=== PATIENT | male | born 1990 | race Caucasian/White ===

== ENCOUNTER 2016-08-30 15:21 | Emergency (ER) | payer SELFPAY ==
[~2016-08-30] VITALS: Ht 160 cm; Wt 50.0 kg
[2016-08-30 15:49] VITALS: BP 105/70
[2016-08-30] MEDS ORDERED: BACITRACIN ZINC OINT UDPKT TOP ONE (16:15)
[2016-08-30] MEDS ORDERED: TETANUS, DIPHTHERIA, PERTUSSIS VAC/PF 0.5ML (>7YR OLD) IM ONE (16:15)
== END 2016-08-30 18:32 | disposition home or self-care (01) ==
LOC: ER 15:21
DX: S01.01XA Laceration without foreign body of scalp, initial encounter (principal); S00.03XA Contusion of scalp, initial encounter; W19.XXXA Unspecified fall, initial encounter; Y93.89 Activity, other specified; Y92.89 Other specified places as the place of occurrence of the external cause; Y99.8 Other external cause status
CPT/HCPCS: 12002; 90471; 90715; 99283; Z7610